=== PATIENT | male | born 1980 | race African-American/Black ===

== ENCOUNTER 2021-01-23 11:18 | Inpatient (IN) ==
[2021-01-23 12:29] LABS: Basophils % 0.2 % (0.0-0.8); Eosinophils % 0.2 % (0.00-10.9); Immature Granulocytes % 0.4 %; Immature Granulocytes Absolute 0.05 #; Lymphocytes # 1.6 10*3/uL (1.4-4.0); Lymphocytes % 13.1 % (21.2-54.2); Mean Corpuscular HGB Conc 34.2 GM/DL (32-36); Mean Corpuscular Volume 81.2 FL (87-102); Mean Platelet Volume 11.5 FL (9.6-12.0); Monocytes % 6.8 % (1.7-12.7); Neutrophils % 79.3 % (38.7-73.9); Platelet Count 246 T/CUMM (130-400); Red Blood Count 4.68 MC/CUMM (3.8-5.5); White Blood Count 12.1 T/CUMM (4-12)
[2021-01-23] MEDS ORDERED: METOPROLOL TARTRATE 5 MG/5 ML VIAL IV STA ×2 (12:29→14:19)
[2021-01-23 12:57] LABS: INR 1.3; PT Patient Result 14.6 SECS (10.5-12.0); Partial Thromboplastin Time 28.5 SECS (23.8-32.1)
[2021-01-23 13:18] LABS: Albumin 3.2 G/DL (3.4-5.0); Bilirubin,Total 1.2 MG/DL (0.20-1.00); Calcium 8.7 MG/DL (8.5-10.1); Osmolality,Calculated 279.7 MOS/KG (273-304); Potassium 3.6 MMOL/L (3.5-5.1); Total Protein 6.5 G/DL (6.4-8.2)
[2021-01-23] MEDS ORDERED: ASPIRIN 325 MG TABLET PO STA (13:37)
[2021-01-23] MEDS ORDERED: HEPARIN 5,000 UNIT/1 ML VIAL IV STA (13:42)
[2021-01-23 13:45] LABS: Barbiturates Screen,Urine Negative (Negative); Benzodiazepines Screen,Urine Negative (Negative); Cannabinoid Screen,Urine Negative (Negative); Opiate Screen,Urine Negative (Negative); Phencyclidine Screen,Urine Negative (Negative)
[2021-01-23 13:47] LABS: Risk Ratio 4.55; VLDL Cholesterol 16.6 MG/DL
[2021-01-23] MEDS ORDERED: ONDANSETRON 4 MG/2 ML VIAL IV PRN (13:55)
[2021-01-23] MEDS: HEPARIN DRIP 25,000 UNITS/500 ML PREMIX IV SCH (14:18)
[2021-01-23] MEDS: SODIUM CHLORIDE 0.9% 1,000 ML IV SCH (14:18)
[2021-01-23] MEDS ORDERED: FUROSEMIDE 40 MG/4 ML VIAL IV ONE (16:26)
[2021-01-23] MEDS: ISOSORBIDE MONONITRATE 30 MG TABLET PO SCH (16:37)
[2021-01-23] MEDS: carvediloL 6.25 MG TABLET PO SCH ×2 (16:38→20:27)
[2021-01-23] MEDS ORDERED: hydrALAZINE 20 MG/1 ML VIAL IV PRN (17:56)
[2021-01-23] MEDS: ROSUVASTATIN 20 MG TABLET PO SCH (20:27)
[2021-01-23] MEDS ORDERED: carvediloL 3.125 MG TABLET PO SCH (21:00)
[2021-01-24] MEDS: SODIUM CHLORIDE 0.9% 1,000 ML IV SCH (00:59)
[2021-01-24 06:51] LABS: INR 1.3; PT Patient Result 14.5 SECS (10.5-12.0); Partial Thromboplastin Time 97.1 SECS (23.8-32.1)
[2021-01-24 07:02] LABS: Basophils % 0.4 % (0.0-0.8); Eosinophils # 0.1 10*3/uL (0.0-0.87); Eosinophils % 0.5 % (0.00-10.9); Hematocrit 35.3 VOL% (42.0-52.0); Hemoglobin 11.8 GM/DL (14.0-18.0); Immature Granulocytes % 0.4 %; Immature Granulocytes Absolute 0.04 #; Lymphocytes # 1.7 10*3/uL (1.4-4.0); Lymphocytes % 14.9 % (21.2-54.2); Mean Corpuscular HGB Conc 33.4 GM/DL (32-36); Mean Corpuscular Volume 83.1 FL (87-102); Mean Platelet Volume 12.3 FL (9.6-12.0); Monocytes % 6.6 % (1.7-12.7); Neutrophils % 77.2 % (38.7-73.9); Platelet Count 229 T/CUMM (130-400); Red Blood Count 4.25 MC/CUMM (3.8-5.5); Red Cell Distribution Width 15.1 % (9.3-17.3); White Blood Count 11.4 T/CUMM (4-12)
[2021-01-24 07:53] LABS: Osmolality,Calculated 283.4 MOS/KG (273-304); Potassium 3.1 MMOL/L (3.5-5.1)
[2021-01-24 08:12] LABS: Albumin 2.7 G/DL (3.4-5.0); Calcium 7.8 MG/DL (8.5-10.1); Osmolality,Calculated 282.4 MOS/KG (273-304); Potassium 3.1 MMOL/L (3.5-5.1); Thyroid Stimulating Hormone 1.5 uIU/ml (0.358-3.74); Total Protein 5.8 G/DL (6.4-8.2)
[2021-01-24] MEDS ORDERED: POTASSIUM CHLORIDE 20 MEQ TABLET PO ONE (08:58)
[2021-01-24] MEDS: ASPIRIN EC 81 MG TABLET PO SCH (09:38)
[2021-01-24] MEDS: ISOSORBIDE MONONITRATE 30 MG TABLET PO SCH (09:38)
[2021-01-24] MEDS: PANTOPRAZOLE 40 MG TABLET PO SCH (09:38)
[2021-01-24] MEDS: carvediloL 6.25 MG TABLET PO SCH ×2 (09:38→21:04)
[2021-01-24] MEDS ORDERED: FUROSEMIDE 40 MG/4 ML VIAL IV ONE (10:09)
[2021-01-24 10:11] LABS: Basophils # 0.1 10*3/uL (0.0-0.2); Basophils % 0.5 % (0.0-0.8); Eosinophils # 0.1 10*3/uL (0.0-0.87); Eosinophils % 0.6 % (0.00-10.9); Hemoglobin 12.9 GM/DL (14.0-18.0); Immature Granulocytes % 0.3 %; Immature Granulocytes Absolute 0.04 #; Lymphocytes # 1.9 10*3/uL (1.4-4.0); Lymphocytes % 16.6 % (21.2-54.2); Mean Corpuscular HGB Conc 34.9 GM/DL (32-36); Mean Corpuscular Volume 81.1 FL (87-102); Mean Platelet Volume 11.3 FL (9.6-12.0); Monocytes % 5.3 % (1.7-12.7); Neutrophils % 76.7 % (38.7-73.9); Platelet Count 248 T/CUMM (130-400); Red Blood Count 4.56 MC/CUMM (3.8-5.5); Red Cell Distribution Width 14.8 % (9.3-17.3); White Blood Count 11.5 T/CUMM (4-12)
[2021-01-24 10:24] LABS: INR 1.3; PT Patient Result 14.1 SECS (10.5-12.0); Partial Thromboplastin Time 94.1 SECS (23.8-32.1)
[2021-01-24] MEDS: SPIRONOLACTONE 25 MG TABLET PO SCH (11:24)
[2021-01-24 11:30] LABS: Hepatitis B Core IgM Quant 0.17 Index; Hepatitis B Surface Ag Quant < 0.10 Index; Hepatitis B Surface Ag Result Non-Reactive (NonReactive); Hepatitis C Virus Ab Quant 0.11 Index; Hepatitis C Virus Ab Result Non-Reactive (NonReactive)
[2021-01-24] MEDS: ROSUVASTATIN 20 MG TABLET PO SCH (21:04)
[2021-01-24] MEDS ORDERED: ACETAMINOPHEN 325 MG TABLET PO PRN (23:49)
[2021-01-25] MEDS: HEPARIN DRIP 25,000 UNITS/500 ML PREMIX IV SCH (02:27)
[2021-01-25] MEDS: SODIUM CHLORIDE 0.9% 1,000 ML IV SCH (02:27)
[2021-01-25 06:38] LABS: Basophils % 0.4 % (0.0-0.8); Eosinophils # 0.1 10*3/uL (0.0-0.87); Eosinophils % 1.1 % (0.00-10.9); Hematocrit 34.3 VOL% (42.0-52.0); Hemoglobin 11.8 GM/DL (14.0-18.0); Immature Granulocytes % 0.3 %; Immature Granulocytes Absolute 0.02 #; Lymphocytes % 24.4 % (21.2-54.2); Mean Corpuscular HGB Conc 34.4 GM/DL (32-36); Mean Corpuscular Volume 81.1 FL (87-102); Mean Platelet Volume 12.1 FL (9.6-12.0); Monocytes % 6.1 % (1.7-12.7); Neutrophils % 67.7 % (38.7-73.9); Platelet Count 246 T/CUMM (130-400); Red Blood Count 4.23 MC/CUMM (3.8-5.5); Red Cell Distribution Width 14.9 % (9.3-17.3)
[2021-01-25 06:59] LABS: Albumin 2.7 G/DL (3.4-5.0); Bilirubin,Total 1.5 MG/DL (0.20-1.00); Calcium 8.2 MG/DL (8.5-10.1); Osmolality,Calculated 282.5 MOS/KG (273-304); Total Protein 5.9 G/DL (6.4-8.2)
[2021-01-25 07:03] LABS: Calcium 8.1 MG/DL (8.5-10.1); Osmolality,Calculated 282.5 MOS/KG (273-304)
[2021-01-25] MEDS: SPIRONOLACTONE 25 MG TABLET PO SCH (09:04)
[2021-01-25] MEDS: carvediloL 25 MG TABLET PO SCH ×2 (09:05→21:06)
[2021-01-25] MEDS: LOSARTAN 50 MG TABLET PO SCH (09:05)
[2021-01-25] MEDS: ISOSORBIDE MONONITRATE 30 MG TABLET PO SCH (09:05)
[2021-01-25] MEDS: FUROSEMIDE 40 MG TABLET PO SCH (09:05)
[2021-01-25] MEDS: ASPIRIN EC 81 MG TABLET PO SCH (09:05)
[2021-01-25] MEDS: PANTOPRAZOLE 40 MG TABLET PO SCH (09:06)
[2021-01-25] MEDS ORDERED: POTASSIUM CHLORIDE 20 MEQ TABLET PO ONE (11:50)
[2021-01-25] MEDS: POTASSIUM CHLORIDE 20 MEQ TABLET PO SCH (17:37)
[2021-01-25] MEDS: APIXABAN 5 MG TABLET PO SCH (21:06)
[2021-01-25] MEDS: ROSUVASTATIN 20 MG TABLET PO SCH (21:06)
[2021-01-26 04:46] LABS: Basophils % 0.3 % (0.0-0.8); Eosinophils # 0.1 10*3/uL (0.0-0.87); Eosinophils % 0.9 % (0.00-10.9); Hematocrit 34.4 VOL% (42.0-52.0); Hemoglobin 11.6 GM/DL (14.0-18.0); Immature Granulocytes % 0.1 %; Immature Granulocytes Absolute 0.01 #; Lymphocytes # 1.2 10*3/uL (1.4-4.0); Lymphocytes % 16.2 % (21.2-54.2); Mean Corpuscular HGB Conc 33.7 GM/DL (32-36); Mean Corpuscular Volume 82.7 FL (87-102); Mean Platelet Volume 11.9 FL (9.6-12.0); Monocytes % 5.3 % (1.7-12.7); Neutrophils % 77.2 % (38.7-73.9); Platelet Count 253 T/CUMM (130-400); Red Blood Count 4.16 MC/CUMM (3.8-5.5); Red Cell Distribution Width 14.9 % (9.3-17.3); White Blood Count 7.4 T/CUMM (4-12)
[2021-01-26 05:10] LABS: Calcium 8.2 MG/DL (8.5-10.1); Osmolality,Calculated 288.1 MOS/KG (273-304); Potassium 3.4 MMOL/L (3.5-5.1)
[2021-01-26 05:17] LABS: Albumin 2.7 G/DL (3.4-5.0); Bilirubin,Direct 0.22 MG/DL (0.0-0.20); Bilirubin,Indirect 1.4 MG/DL (0.0-1.0); Bilirubin,Total 1.6 MG/DL (0.20-1.00); Total Protein 5.5 G/DL (6.4-8.2)
[2021-01-26] MEDS: PANTOPRAZOLE 40 MG TABLET PO SCH (09:09)
[2021-01-26] MEDS: SPIRONOLACTONE 25 MG TABLET PO SCH (09:09)
[2021-01-26] MEDS: APIXABAN 5 MG TABLET PO SCH (09:09)
[2021-01-26] MEDS: POTASSIUM CHLORIDE 20 MEQ TABLET PO SCH (09:09)
[2021-01-26] MEDS: ASPIRIN EC 81 MG TABLET PO SCH (09:10)
[2021-01-26] MEDS: carvediloL 25 MG TABLET PO SCH (09:10)
[2021-01-26] MEDS: LOSARTAN 50 MG TABLET PO SCH (09:10)
[2021-01-26] MEDS: FUROSEMIDE 40 MG TABLET PO SCH (09:10)
[2021-01-26] MEDS: ISOSORBIDE MONONITRATE 30 MG TABLET PO SCH (09:10)
[2021-01-26] MEDS ORDERED: POTASSIUM CHLORIDE 20 MEQ TABLET PO ONE (10:11)
[2021-01-26 11:20] VITALS: BP 101/74
== END 2021-01-26 11:15 | disposition home or self-care (01) | DRG 64 ==
LOC: N.ED 11:18 → N.EDINP 13:55 → SUATTDRO 13:55 → N.EDINP 15:11 → N.CVR 16:22 → N.TELEN 01-24 16:04
PROVIDERS: ADMIT Family Medicine; ATTEND Internal Medicine

== ENCOUNTER 2021-07-11 11:39 | Observation (INO) ==
[2021-07-11 12:10] LABS: Basophils % 0.1 % (0.0-0.8); Eosinophils # 0.1 10*3/uL (0.0-0.87); Eosinophils % 0.9 % (0.00-10.9); Hematocrit 35.3 VOL% (42.0-52.0); Hemoglobin 12.3 GM/DL (14.0-18.0); Immature Granulocytes % 0.1 %; Immature Granulocytes Absolute 0.01 #; Lymphocytes # 1.3 10*3/uL (1.4-4.0); Lymphocytes % 17.1 % (21.2-54.2); Mean Corpuscular HGB Conc 34.8 GM/DL (32-36); Mean Corpuscular Volume 81.3 FL (87-102); Mean Platelet Volume 10.7 FL (9.6-12.0); Monocytes # 0.5 10*3/uL (0.11-0.8); Monocytes % 6.1 % (1.7-12.7); Neutrophils % 75.7 % (38.7-73.9); Platelet Count 242 T/CUMM (130-400); Red Blood Count 4.34 MC/CUMM (3.8-5.5); Red Cell Distribution Width 12.7 % (9.3-17.3); White Blood Count 7.5 T/CUMM (4-12)
[2021-07-11 12:37] LABS: Albumin 4.1 G/DL (3.4-5.0); Bilirubin,Total 0.4 MG/DL (0.20-1.00); Calcium 9.8 MG/DL (8.5-10.1); Osmolality,Calculated 280.5 MOS/KG (273-304); Potassium 3.5 MMOL/L (3.5-5.1); Total Protein 7.8 G/DL (6.4-8.2)
[2021-07-11] MEDS ORDERED: GLUCAGON 1 MG VIAL IM PRN (16:01)
[2021-07-11] MEDS ORDERED: hydrALAZINE 20 MG/1 ML VIAL IV PRN (16:01)
[2021-07-11] MEDS ORDERED: ONDANSETRON 4 MG/2 ML VIAL IV PRN (16:01)
[2021-07-11] MEDS ORDERED: ACETAMINOPHEN 325 MG TABLET PO PRN (16:01)
[2021-07-11] MEDS ORDERED: DEXTROSE 10% 250 ML BAG IV PRN (16:16)
[2021-07-11] MEDS ORDERED: ENOXAPARIN 40 MG/0.4 ML SYRINGE SUBCUT SCH (16:30)
[2021-07-12 05:38] LABS: Basophils % 0.3 % (0.0-0.8); Eosinophils # 0.1 10*3/uL (0.0-0.87); Eosinophils % 1.3 % (0.00-10.9); Hematocrit 35.4 VOL% (42.0-52.0); Hemoglobin 12.2 GM/DL (14.0-18.0); Immature Granulocytes % 0.3 %; Immature Granulocytes Absolute 0.02 #; Lymphocytes # 1.7 10*3/uL (1.4-4.0); Lymphocytes % 22.5 % (21.2-54.2); Mean Corpuscular HGB Conc 34.5 GM/DL (32-36); Mean Corpuscular Volume 81.9 FL (87-102); Mean Platelet Volume 11.5 FL (9.6-12.0); Monocytes # 0.5 10*3/uL (0.11-0.8); Monocytes % 6.5 % (1.7-12.7); Neutrophils % 69.1 % (38.7-73.9); Platelet Count 231 T/CUMM (130-400); Red Blood Count 4.32 MC/CUMM (3.8-5.5); Red Cell Distribution Width 12.7 % (9.3-17.3); White Blood Count 7.7 T/CUMM (4-12)
[2021-07-12 06:00] LABS: Albumin 3.8 G/DL (3.4-5.0); Bilirubin,Total 0.4 MG/DL (0.20-1.00); Calcium 9.4 MG/DL (8.5-10.1); Osmolality,Calculated 281.3 MOS/KG (273-304); Potassium 3.1 MMOL/L (3.5-5.1); Risk Ratio 2.45; Total Protein 7.2 G/DL (6.4-8.2); VLDL Cholesterol 12.6 MG/DL
[2021-07-12] MEDS ORDERED: POTASSIUM CHLORIDE 20 MEQ TABLET PO ONE (07:52)
[2021-07-12] MEDS ORDERED: PANTOPRAZOLE 40 MG TABLET PO SCH (09:00)
[2021-07-12] MEDS ORDERED: APIXABAN 5 MG TABLET PO SCH (10:00)
[2021-07-12] MEDS ORDERED: LOSARTAN 50 MG TABLET PO SCH (10:00)
[2021-07-12] MEDS ORDERED: ISOSORBIDE MONONITRATE 30 MG TABLET PO SCH (10:00)
[2021-07-12] MEDS ORDERED: carvediloL 12.5 MG TABLET PO SCH (10:00)
[2021-07-12] MEDS ORDERED: ASPIRIN EC 81 MG TABLET PO SCH (10:00)
[2021-07-12] MEDS ORDERED: carvediloL 25 MG TABLET PO SCH (10:18)
[2021-07-12] MEDS ORDERED: SPIRONOLACTONE 25 MG TABLET PO SCH (10:30)
[2021-07-12] MEDS: SPIRONOLACTONE 50 MG TABLET PO SCH ×2 (10:39→10:40)
[2021-07-12 12:02] VITALS: BP 149/92
[2021-07-12] MEDS ORDERED: ROSUVASTATIN 20 MG TABLET PO SCH (21:00)
== END 2021-07-12 15:57 | disposition home or self-care (01) ==
LOC: N.EDINP 11:39 → N.ED 11:39 → SUATTDRO 16:01 → N.TELES 17:51
PROVIDERS: ADMIT Internal Medicine; ATTEND Internal Medicine